=== PATIENT | female | born 1930 | race Caucasian/White ===

== ENCOUNTER 2017-04-13 13:11 | Emergency (ER) | payer MEDICARE, OTHER ==
[~2017-04-13 13:11] MED LIST: ADRIAMYCIN; ALLEGRA180 MG PO; ALPRAZOLAM0.25 MG PO; ANTIVERT PO; AVALIDE 300-121 EACH; AVALIDE 300-251 TAB PO; CALCIUM + D 6001 TA1 PO; CALCIUM 600 + D1 TA1 PO; CETRIZINE PO; COCONUT OIL PO; CYMBALTA PO; CYTOXAN; DAILY VALUE1 EACH PO; DOC-Q-LACE100 MG PO; DOCUSATE SODIUM PO; ENDOCET 5-3251 EACH PO; FEMARA2.5 MG PO; FISH OIL 10001000 MG PO; HUMALOG; HUMALOG100 U/ML SUBQ; JANUVIA PO; K-DUR10 MEQ; KCL PO; LANTUS100 U/ML SUBQ; LANTUS100 UNITS/ SUBQ; LASIX PO; LASIX20 MG PO; LIDOCAINE VISCOU1 ML EXT; LIDODERM30 EA TOP; LOVAZA PO; LOVAZA1 G PO; MICRO-K10 MEQ PO; MOTION SICKNESS25 M4 PO; MULTI-DAY VITAM1 TAB PO; MYCOLOG II CREA15 GM; MYCOSTATIN15 GM POW EXT; MYOFLEX TOP; NATURAL VITA100 UNIT PO; NEXIUM PO; NON ASPIRIN650 MG PO; NYSTATIN-TRIAMC15 G1; NYSTATIN15 GM OINT TOP; PAIN RELIEF650 MG PO; PRAVASTATIN SOD40 MG PO; PREDNISONE; PREVASTATIN; PROMETHAZINE HC25 MG PO; RITUXAN; SAVELLA25 MG; SAVELLA25 MG PO; SENNA-S TABLE1 UDTAB PO; SENNA8.6 M1 PO; SINGULAIR PO; SOLARAZE100 GM TP; VIT B6 PO; VITAL-D RX TABL1 TAB PO; VITAMIN B-121000 MCG PO; VITAMIN B12; VITAMIN D-32000 UNIT PO; VITAMIN D2000 UNI1 PO; VITAMIN E400 UNI2 PO; [UNRECOGNIZED DRUG - OTHER]
== END 2017-04-13 14:13 | disposition home or self-care (01) ==
LOC: SED 13:11
DX: T78.40XA Allergy, unspecified, initial encounter (principal); E11.9 Type 2 diabetes mellitus without complications; I10 Essential (primary) hypertension; E78.5 Hyperlipidemia, unspecified; Z90.49 Acquired absence of other specified parts of digestive tract; Z88.5 Allergy status to narcotic agent; Z88.2 Allergy status to sulfonamides
CPT/HCPCS: 96372; 99283; J1100

== ENCOUNTER → 2017-05-23 | Outpatient (CLI) | payer MEDICARE, OTHER ==
--- NOTE | ~2017-05-23 | MY28 ---
[facility] A Service of [facility] RADIOLOGY TEXT RESULTS PATIENT: NIKKI FOURNIER LOCATION: [facility] : 31 UNIT #: [id number] AGE: [address]: Gordy Wylie MD SEX: F ORDER DR: [id number] [facility] [address] [place], [place] [address] [id number] O MR#: [id number] Acc #: [id number] NAME: NIKKI FOURNIER : 1930 SEX: F STUDY DATE/TIME: 05/23/2017 15:45 UNIT: [facility] ROOM: STUDY DESCRIPTION: MY DANIELA SCREEN W/ CAD UNI RT Attending Physician: Gordy Wylie M.D. Ordering Physician: Gordy Wylie M.D. Primary Care Physician: Edd Patel M.D. MEDICAL IMAGING REPORT This report is preliminary unless electronic signature is present EXAM Unilateral right digital screening mammogram 05/23/2017 HISTORY 87-year-old woman, status post left mastectomy 2009. Adjuvant radiation therapy. Personal and family history, sister. Annual screen. FINDINGS Digital imaging of the right breast was completed utilizing screening protocol. Review includes FDA-approved CAD device. Breast parenchyma is predominantly fatty replaced. I see no interval occurring mass. There are no suspicious microcalcifications and no architectural deformity. IMPRESSION Negative unilateral right mammogram. Status post left mastectomy. Annual screening recommended. BIRADS 1 Patients over the age of 40 are entered into a reminder system with target due date for the next mammogram. A result letter will also be sent to the patient. BIRADS: 1 - Negative Dictated by... Dionisio Lama M.D. THIS IS AN ELECTRONICALLY VERIFIED REPORT Dionisio Lama M.D. at 05/24/2017 8:11 AM Sofia TD: 05/23/2017 18:05 JOB #: [id number] [facility] A Service of [facility] RADIOLOGY TEXT RESULTS PATIENT: NIKKI FOURNIER LOCATION: [facility] : 31 UNIT #: [id number] AGE: [address]: Gordy Wylie MD SEX: F ORDER DR: MEDICAL IMAGING REPORT Page 1 of 1 COPY
== END | disposition home or self-care (01) ==
LOC: CWCC 05-17 14:30
DX: Z12.31 Encounter for screening mammogram for malignant neoplasm of breast (principal); Z85.3 Personal history of malignant neoplasm of breast; Z80.3 Family history of malignant neoplasm of breast; Z90.12 Acquired absence of left breast and nipple
CPT/HCPCS: G0202

== ENCOUNTER 2017-07-17 20:10 | Observation (INO) | payer MEDICARE, OTHER ==
[~2017-07-17] VITALS: Ht 154.9 cm; Wt 85.3 kg
--- NOTE | ~2017-07-17 | EKG ---
PATIENT: NIKKI FOURNIER UNIT #: [id number] Ventricular Rate: 75 BPM Atrial Rate: 75 BPM P-R Interval: 162 ms QRS Duration: 92 ms Q-T Interval: 420 ms QTC Calculation(Bezet): 469 ms P [place]: 50 degrees Calculated R [place]: 32 degrees Calculated T [place]: 34 degrees Diagnosis Line: Sinus rhythm with occasional Premature ventricular Diagnosis Line: complexes Diagnosis Line: Otherwise normal ECG Diagnosis Line: When compared with ECG of 09-MAR-2011 23:57, Diagnosis Line: Premature ventricular complexes are now Present Diagnosis Line: Nonspecific T wave abnormality no longer evident Diagnosis Line: in Anterior leads Diagnosis Line: Confirmed by WING SAM MD ([id number]) on 07/18/2017 Diagnosis Line: 7:03:53 PM INTERPRETING MD: FLACO MCELROY
--- NOTE | ~2017-07-17 | CO ---
Unit #: [id number] #: [id number] Patient: NIKKI FOURNIER [id number] [facility]. [place], [place] [address] [id number] I MR#: [id number] NAME: NIKKI FOURNIER ROOM: 219 Age: 87 Sex: F Admission Date: 07/18/2017 : 1930 Attending Physician: Sarah Elizondo M.D. Primary Care Physician: Edd Patel M.D. Consultation Date: 07/19/2017 CONSULTATION REPORT REASON FOR CONSULTATION Pancytopenia, please evaluate. HISTORY OF PRESENT ILLNESS Ms. Nikki Fournier is an 87-year-old, well known to me with a history of diffuse large cell lymphoma and more remotely for history of breast cancer, who was admitted to the hospital with nausea, vomiting and profuse watery diarrhea, thought to be acute gastroenteritis. She had a temperature of 102 in the emergency room, bolused with IV fluids and was transferred to [facility]. Her stool has been checked for Clostridium difficile antitoxin, which was negative given her recent history of antibiotic usage. Ms. Fournier with her daughter at bedside tells me that her problems started in late February when she developed severe cellulitis of both lower extremities. She was initially treated with clindamycin and with failure, changed to Levaquin. Following this, she saw her fruit rancher, got Orbactiv IV with the first infusion complicated by flushing, chills and hypotension. This was thought to be related to the speed of infusion and thereafter even though her cellulitis cleared, there was concern that there was persistence and she had another infusion, which she tolerated better; however, a week later, she developed a diffuse rash, which was related to the Orbactiv, which was then discontinued. She has remained fatigued thereafter. No chest pains, cough with expectoration or normally any diarrhea. She has a history of sleep apnea, but according to daughter, she has not snored for several years and does not use the CPAP machine. PAST MEDICAL HISTORY 1. Stage III breast cancer diagnosed in 09/2010, undergoing a mastectomy and sentinel biopsy followed by axillary node dissection with a 4 cm invasive lobular carcinoma. 2. [place] nodes contain metastatic cancer and she had subsequently a total of 7 nodes ER and ME positive. She had a stage I colon cancer diagnosed on 09/21/2010 and large cell lymphoma on 04/10/2011, undergoing treatment with R-CHOP. 3. Essential hypertension. 4. Hyperlipidemia. 5. Cellulitis as mentioned. FAMILY HISTORY Notable for breast cancer in her half sister. PAST SURGICAL HISTORY Colon resection and mastectomy. Unit #: [id number] #: [id number] Patient: NIKKI FOURNIER SOCIAL HISTORY Never smoker. However, she was exposed to secondhand smoke both from her as well as her son. Does not drink any alcohol. She is single, and lives with a daughter. Has 3 children, who live locally. ALLERGIES Orbactiv as mentioned. REVIEW OF SYSTEMS A 14-point review of systems taken. CONSTITUTIONAL: Fatigue as mentioned. Appetite has been variable. EYES: Negative. EARS, NOSE, MOUTH AND THROAT: Some hardness of hearing. CARDIOVASCULAR: Negative. RESPIRATORY: Shortness of breathing on any exertion. GASTROINTESTINAL: Diarrhea, nausea, vomiting as discussed. GENITOURINARY: Negative. NEUROLOGIC: Some tingling and numbness of her feet. ALLERGIC: Reaction as discussed above. LYMPHATIC: Negative. ENDOCRINE: She has an insulin pump and according to daughter, her hemoglobin A1c was 6.6. She monitors her blood sugar 4 times a day. PSYCHIATRIC: Depression, which she is currently on antidepressants. PHYSICAL EXAMINATION GENERAL: She is a very pleasant, elderly woman sitting in bed. Awake, alert, and oriented x3. VITAL SIGNS: Temperature is 98.3, pulse is 63, respirations 16, blood pressure 177/44, O2 sats 99% on room air. HEENT: Shows mild pallor. No icterus. Mucous membranes are moist. NECK: Without JVD or thyromegaly. CARDIOVASCULAR: First and second heart sounds are heard and regular. No murmurs, gallops, or rubs. LUNGS: Chest expansion is symmetric bilaterally to normal breath sounds. ABDOMEN: Soft and nontender. Bowel sounds are active. EXTREMITIES: Warm with trace edema. Pulses are felt. NEUROLOGIC: She is awake, alert, and oriented x3 without any focal findings. PSYCHIATRIC: Affect is slightly flat, but that could be related to fatigue. She otherwise has no other pertinent symptoms. SKIN: Negative. LYMPHATIC: No palpable lymph nodes. DIAGNOSTIC STUDIES LABORATORY RESULTS: CBC with a white count of 3.7, hemoglobin 11, platelet count is 111,000. Complete metabolic panel shows a BUN of 11, creatinine is 0.5, eGFR is 87.6, total protein is 5.4, and albumin at 2.9. Stool C diff is negative. IMAGING STUDIES: Chest x-ray, single view, does not show any acute findings. The urine culture catheterized specimen shows 2 to 5 wbc's per high-power field. ASSESSMENT AND PLAN Ms. Haile Fournier is an 87-year-old with a history of colon cancer, stage III breast cancer, on hormonal therapy and a history of diffuse large cell lymphoma 6 years ago, admitted with nausea, vomiting and diarrhea accompanied by fever of 103, which is now improved. Clostridium difficile Unit #: [id number] #: [id number] Patient: SHANTANU,NIKKI enterocolitis was suspected and ruled out. According to her daughter, she has been quite fatigued related to her cellulitis and allergic reaction to IV antibiotics. I had an extensive discussion with the patient and daughter, her pancytopenia has been noted on previous occasions as well and may just reflect acute illnesses now improved today and I have reassured them about it. As far as the fatigue, this could be multifactorial, but I would additionally check a B12 level, thyroid function, check her echocardiogram for the possibility of side affects from previous anthracycline medications as well as being a longstanding diabetic, she appears to have silent ischemic heart disease along with a BNP. I discussed that given her shortness of breathing and a history of sleep apnea, although she does not snore at this point, we will do a 6 minute exercise test with checking of oxygen if feasible and consider the possibility of doing overnight pulse oximetry. Thank you for allowing me to participate in her care. Dictated by... Gordy Wylie M.D. BRYAN/jovani TD: 07/20/2017 05:54 JOB #: [id number] CONSULTATION REPORT Page 1 of 1 X Gordy Wylie MD CONSULTATION REPORT
--- NOTE | ~2017-07-17 | DS ---
Unit #: [id number] #: [id number] Patient: NIKKI FOURNIER [id number] [address] [address] [id number] I MR#: [id number] NAME: NIKKI FOURNIER ROOM: 219 Age: 87 Sex: F Admission Date: 07/18/2017 : 1930 Discharge Date: 07/19/2017 Attending Physician: Sarah Elizondo M.D. Primary Care Physician: Edd Patel M.D. DISCHARGE SUMMARY Admitting physician is Dr. Alicea for HIPS. ADMITTING DIAGNOSIS 1. Intractable nausea, vomiting likely due to gastroenteritis. 2. 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 3. Hypertension. 4. History of colon cancer. 5. History of Burkitt lymphoma. 6. History of stage 4 breast CA. DISCHARGE DIAGNOSIS 1. Intractable nausea, vomiting, diarrhea likely due to viral gastroenteritis, improved. 2. Insulin dependent diabetes mellitus on insulin pump, stable. 3. Pancytopenia, improved. 4. Hyponatremia likely secondary to volume depletion, improved. 5. History of stage 4 breast CA, stable. 6. Hypertension, stable. CONSULTS Consults include Dr. Gordy Wylie with oncology. PROCEDURES None. HISTORY OF PRESENT ILLNESS History of present illness is as follows: Ms. Fournier is an 87-year-old white female with history of colon cancer, breast CA as well as Burkitt lymphoma and insulin dependent diabetes on insulin pump who presented with a 1 day history of intractable nausea, vomiting, diarrhea. HOSPITAL COURSE Hospital course is as follows: Hospital course was essentially uneventful. Patient was observed overnight for her intractable symptoms where it was felt likely she had a gastroenteritis, possibly viral in nature. Her stool studies were sent off. She was empirically treated with Flagyl. However, her stool studies were negative including a negative C. diff and a negative Shigella and Salmonella/Campylobacter studies. Her Flagyl was discontinued. Patient, however, did improve. She was mildly pancytopenic during this admission. Given that she has seen Dr. Wylie due to her history of breast CA, I did ask him to evaluate her in regards to her pancytopenia. He did check several studies including a 2D echo as well as a BNP. The BNP was negative and her 2D echo showed a left ventricular systolic function of normal with an Unit #: [id number] #: [id number] Patient: NIKKI FOURNIER estimated ejection fraction of 55%. Her thyroid studies also were negative. He felt that from his standpoint she could follow up with him as an outpatient. She did ambulate with physical therapy and did well per their recommendations. She did resume her home insulin dose via her pump and has had stable blood sugars but overall, on the day of discharge, patient felt well. Her exam had no acute findings and, overall, she is medically stable for discharge home. DISCHARGE MEDICATIONS Include: 1. She will resume or Avalide 300/12.5 mg p.o. daily. 2. Cymbalta 60 mg p.o. daily. 3. Meclizine 25 mg p.o. b.i.d. as needed for dizziness. 4. Femara 2.5 mg p.o. daily. 5. Lidoderm patch, 1 topically for 12 hours and then 12 hours off as needed. 6. Docusate 100 mg p.o. daily. 7. Pravastatin 40 mg p.o. q. h.s. 8. Singulair 10 mg p.o. daily. 9. Multivitamin, 1 tablet p.o. daily. 10. Calcium with D 600 mg p.o. daily. 11. Vitamin D 2000 units p.o. daily. 12. Vitamin B12 1000 mcg p.o. b.i.d. 13. Lovaza 2 g p.o. b.i.d. 14. She will resume her home insulin via her insulin delivery system as she was taking before. DISCHARGE INSTRUCTIONS Discharge instructions are that she will see Dr. Wylie with oncology in the office in 1-2 weeks. She will also follow up with her primary care physician in 1-2 weeks. Dictated by... Shobha Sher/chaz TD: 07/22/2017 15:15 JOB #: [id number] CC: Gordy Wylie M.D. DISCHARGE SUMMARY Page 1 of 1 X Sarah Elizondo X DISCHARGE SUMMARY
--- NOTE | ~2017-07-17 | HP ---
Unit #: [id number] #: [id number] Patient: NIKKI FOURNIER [id number] [address] [place], [place] [address] [id number] I MR#: [id number] NAME: NIKKI FOURNIER ROOM: 219 Age: 87 Sex: F Admission Date: 07/18/2017 : 1930 Attending Physician: Ninfa Ro M.D. Primary Care Physician: Edd Patel M.D. HISTORY AND PHYSICAL CHIEF COMPLAINT Gastroenteritis with intractable symptoms. HISTORY This pleasant 87-year-old female with IDDM, hypertension, was transferred from [facility] emergency department for gastroenteritis with intractable symptoms. The patient was well until about 24 hours prior to admission when she developed intractable nonbloody nausea, vomiting, and diarrhea. Became increasingly weak throughout the day with a fever. She is on an insulin pump, which her daughter disconnected as she was not tolerating foot. She was taken to [facility] emergency department late last evening with a temperature of 102 degrees. She was bolused with 500 mL of normal saline, given Zofran, Tylenol and ultimately a dose of Motrin for her fever. Currently is feeling somewhat improved, although still experiencing diarrhea. Patient has not eaten anything out of the ordinary, no ill contacts. Has not traveled. She was on prolonged antibiotics this spring until end of March. However, her white blood count is normal. Stool is pending cultures and C. diff. PAST MEDICAL HISTORY 1. Stage 4 breast cancer. Currently receiving Femara, status post left mastectomy. 2. Early colon cancer, status post hemicolectomy. 3. Burkitt lymphoma diagnosed 2010, status post chemotherapy with cure. 4. 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 5. Essential hypertension. 6. Hyperlipidemia. 7. Normal ejection fraction of 55%. 8. Recent treatment for lower extremity cellulitis earlier this year in the spring on prolonged antibiotics. 9. Right shoulder arthroplasty. 10. Legally blind. 11. Left mastectomy. 12. Partial colectomy. 13. Hysterectomy. 14. Cataract extraction and further eye surgery. 15. Cholecystectomy. 16. Hemorrhoid surgery. ALLERGIES Patient is allergic to oritavancin. Unit #: [id number] #: [id number] Patient: NIKKI FOURNIER HOME MEDICATIONS Insulin pump plus NovoLog 4 units in the morning, at lunch and 10 units with dinner; Cymbalta 60 mg daily; Avalide 300/12.5 mg daily; multivitamin daily; calcium plus D 600 mg daily; Singulair 10 mg daily; meclizine 25 mg t.i.d. p.r.n.; vitamin D 2,000 units daily; Pravachol 40 mg q.h.s.; B12 1,000 mcg p.o. b.i.d.; Femara 2.5 mg daily; Lovaza 2 g p.o. b.i.d.; Lidoderm patch on 12 hours and off 12 hours; and Colace. FAMILY HISTORY Noncontributory given patent's age. SOCIAL HISTORY The patient lives with her daughter. She is a lifelong nonsmoker and does not drink alcohol. REVIEW OF SYSTEMS Notable for nausea, vomiting and diarrhea, breast and colon cancer, lymphoma, diabetes, hypertension, above mentioned surgeries, fever, weakness. All other systems were reviewed and otherwise negative. PHYSICAL EXAMINATION GENERAL: Very pleasant 87-year-old female who looks younger than stated age. VITAL SIGNS: Temperature was as high as 102 degrees, pulse 92, respirations 16, blood pressure 150/67, O2 saturation 96% on room air. Current temperature is 98.3. HEENT: Eyes - PERRLA, extraocular muscles are intact. Pharynx is benign. NECK: Supple without adenopathy or thyromegaly. CHEST: Clear. CARDIAC: Slightly tachy S1 and S2, without murmur. ABDOMEN: Bowel sounds are present. No hepatosplenomegaly, tenderness or masses. EXTREMITIES: With mild edema. Pedal pulses are present. No ulcers on the feet. NEUROLOGIC: Patient is awake, alert. She is oriented. She is a bit hard of hearing and has problems with her vision. Has equal strength throughout but is a bit weak on exam. DIAGNOSTIC STUDIES LABS: Hematocrit 35.1, normal white count, platelet count is 118, and this is chronic. Normal MCV. SMA 12 - glucose 111, chloride 99, protein 5.8, albumin 3.2, lactic acid normal. Cardiac markers are negative. Urinalysis is negative. IMAGING STUDIES: Chest x-ray - no acute disease. CARDIOLOGY STUDIES: EKG - normal sinus rhythm rate 75, one PVC noted, otherwise normal. ASSESSMENT 1. Gastroenteritis with intractable symptoms, probably viral. However, given recent prolonged antibiotics will gentle treat with Flagyl until stool cultures are back. 2. IDDM. 3. Essential hypertension. 4. Status post hemicolectomy for colon cancer. 5. Previous treatment for Burkitt lymphoma. Unit #: [id number] #: [id number] Patient: NIKKI FOURNIER 6. Stage 4 breast cancer on Femara. PLANS 1. Stool cultures have been sent. 2. Clear liquid diet. 3. IV fluids with dextrose until diet is advanced. 4. Sliding scale insulin. 5. Flagyl pending stool cultures. 6. SCDs for DVT prophylaxis. 7. Supportive treatment. Dictated by Ninfa Ro M.D. AML/ts TD: 07/18/2017 06:35 JOB #: [id number] HISTORY AND PHYSICAL Page 1 of 1 X Ninfa Ro MD X HISTORY AND PHYSICAL
--- NOTE | ~2017-07-17 | CR72 ---
[facility] A Service of [facility] RADIOLOGY TEXT RESULTS PATIENT: NIKKI FOURNIER LOCATION: [facility] : 31 UNIT #: [id number] AGE: [address]: Ninfa Ro MD SEX: F ORDER DR: [id number] [address] [address] [id number] MR#: [id number] Acc #: [id number] NAME: NIKKI FOURNIER : 1930 SEX: F STUDY DATE/TIME: 07/17/2017 23:02 UNIT: SED ROOM: STUDY DESCRIPTION: CR Chest Single View Portable Attending Physician: Vane Maier M.D. Ordering Physician: Vane Miaer M.D. Primary Care Physician: Edd Patel M.D. MEDICAL IMAGING REPORT This report is preliminary unless electronic signature is present. EXAM Portable chest HISTORY Cough, fever and shortness of air today. FINDINGS Cardiac size and pulmonary vascularity are normal. No infiltrates or effusions. Left mastectomy. Right shoulder prosthesis. IMPRESSION No acute findings. Dictated by... Ra Warren M.D. THIS IS AN ELECTRONICALLY VERIFIED REPORT Ra Warren M.D. at 07/18/2017 4:38 AM DAE/osbaldo TD: 07/18/2017 00:47 JOB #: [id number] MEDICAL IMAGING REPORT Page 1 of 1
[2017-07-17 22:06] LABS: BASOPHIL% 0.6 % (0-2.5); EOSINOPHIL% 0.2 % (0.0-7.0); HEMATOCRIT 35.1 % (35.0-45.0); HEMOGLOBIN 11.6 gm/dL (12.0-16.0); LYMPHOCYTE# 0.8 X10e3 (1.0-3.5); LYMPHOCYTE% 14.6 % (17.0-45.0); MEAN CELL VOLUME 85.6 FL (83-96); MEAN CORPUSCULAR HEMOGLOBIN 28.2 PG (28-34); MONOCYTE# 0.5 X10e3 (0-1.0); MONOCYTE% 8.3 % (3.0-12.0); NEUTROPHIL# 4.4 X10e3 (1.5-7.1); NEUTROPHIL% 76.3 % (40-75); PLATELET COUNT 118 X10e3 (140-420); WHITE BLOOD COUNT 5.7 X10e3 (4.0-10.5)
[2017-07-17 22:07] LABS: DIFF IND NO
[2017-07-17 22:10] LABS: POC - CKMB <1.0 ng/mL (0.0-7.9); POC - TROPONIN <0.05 ng/mL (<=0.05)
[2017-07-17 22:22] LABS: ALBUMIN SERUM 3.2 g/dL (3.5-5.0); BILIRUBIN, DIRECT 0.3 mg/dL (0.0-0.2); BILIRUBIN,INDIRECT 0.7 mg/dL (0.0-0.9); BUN/CREATININE RATIO 19.09; CALCIUM SERUM 8.5 mg/dL (8.4-10.2); CREATININE SERUM 1.1 mg/dL (0.6-1.4); GLOM FILT RATE Estimated 45.4 mL/min (>60); POTASSIUM 4.1 mmol/L (3.5-5.1); PROTEIN TOTAL SERUM 5.8 g/dL (6.0-8.3)
[2017-07-17 23:06] LABS: URINE APPEARANCE CLEAR; URINE BILIRUBIN NEG (NEG); URINE BLOOD TRACE-INTACT (NEG); URINE COLOR YELLOW; URINE GLUCOSE NEG (NORM); URINE KETONE TRACE (NEG); URINE LEUKOCYTE ESTERASE NEG (NEG); URINE NITRATE NEG (NEG); URINE PH 5.5 (5-8); URINE PROTEIN NEG (NEG); URINE SPECIFIC GRAVITY 1.025 (1.003-1.035); URINE UROBILINOGEN 0.2 MG/DL (NORM)
[2017-07-17 23:08] LABS: MICRO INDICATED? YES; URINE SOURCE CATH
[2017-07-17 23:12] LABS: CULTURE INDICATED? NO; URINE AMORPHOUS SEDIMENT AMORP URATES; URINE BACTERIA NEG (NEG); URINE MUCUS PRESENT; URINE SQUAMOUS EPITHELIAL CELL FEW /[HPF]; URINE TRANSITIONAL EPI CELLS FEW /[HPF]
[2017-07-18 06:46] LABS: CALCIUM SERUM 8.1 mg/dL (8.4-10.2); CREATININE SERUM 1.1 mg/dL (0.6-1.4); GLOM FILT RATE Estimated 45.4 mL/min (>60); POTASSIUM 3.7 mmol/L (3.5-5.1)
[2017-07-18 08:00] LABS: HEMATOCRIT 31.5 % (35.0-45.0); HEMOGLOBIN 10.6 gm/dL (12.0-16.0); MEAN CELL VOLUME 85.2 FL (83-96); MEAN CORPUSCULAR HEMOGLOBIN 28.5 PG (28-34); MEAN CORPUSCULAR HGB CONC 33.5 g/dL (30-36); MEAN PLATELET VOLUME 10.1 FL (6.5-11.5); RED BLOOD COUNT 3.7 X10e (3.90-5.30); RED CELL DISTRIBUTION WIDTH 13.9 % (11.0-15.5); WHITE BLOOD COUNT 3.2 X10e3 (4.0-10.5)
[2017-07-19 06:07] LABS: HEMATOCRIT 33.2 % (35.0-45.0); MEAN CELL VOLUME 85.3 FL (83-96); MEAN CORPUSCULAR HEMOGLOBIN 28.4 PG (28-34); MEAN CORPUSCULAR HGB CONC 33.3 g/dL (30-36); MEAN PLATELET VOLUME 10.3 FL (6.5-11.5); RED BLOOD COUNT 3.88 X10e (3.90-5.30); RED CELL DISTRIBUTION WIDTH 14.1 % (11.0-15.5); WHITE BLOOD COUNT 3.7 X10e3 (4.0-10.5)
[2017-07-19 06:58] LABS: ALBUMIN SERUM 2.9 g/dL (3.5-5.0); BILIRUBIN,TOTAL 0.7 mg/dL (0.2-2.0); CALCIUM SERUM 8.2 mg/dL (8.4-10.2); CREATININE SERUM 0.5 mg/dL (0.6-1.4); GLOM FILT RATE Estimated 87.6 mL/min (>60); POTASSIUM 3.7 mmol/L (3.5-5.1); PROTEIN TOTAL SERUM 5.4 g/dL (6.0-8.3)
[2017-07-19 10:37] LABS: THYROID STIMULATING HORMONE 1.19 uIU/ml (0.34-5.60)
[2017-07-19 10:44] LABS: FREE THYROXIN (T4) 0.86 ng/dL (0.58-1.64)
== END 2017-07-19 17:18 | disposition home or self-care (01) ==
LOC: SED 20:10 → SEDOF 07-18 00:33 → C2A 07-18 00:33 → SEDOF 07-18 00:33 → SED 07-18 00:33 → SEDOF 07-18 03:12 → C2A 07-18 03:12
PROVIDERS: Emergency Medicine; Internal Medicine; Internal Medicine Hematology & Oncology
DX: R11.2 Nausea with vomiting, unspecified (principal); R19.7 Diarrhea, unspecified; D61.818 Other pancytopenia; C50.919 Malignant neoplasm of unspecified site of unspecified female breast; Z17.0 Estrogen receptor positive status [ER+]; I51.7 Cardiomegaly; I08.1 Rheumatic disorders of both mitral and tricuspid valves; E87.1 Hypo-osmolality and hyponatremia; E11.9 Type 2 diabetes mellitus without complications; Z79.4 Long term (current) use of insulin; I10 Essential (primary) hypertension; E78.5 Hyperlipidemia, unspecified; Z85.038 Personal history of other malignant neoplasm of large intestine; Z85.72 Personal history of non-Hodgkin lymphomas; H54.8 Legal blindness, as defined in USA; Z90.710 Acquired absence of both cervix and uterus; Z90.49 Acquired absence of other specified parts of digestive tract; Z96.611 Presence of right artificial shoulder joint; Z98.49 Cataract extraction status, unspecified eye; Z90.12 Acquired absence of left breast and nipple; Z88.1 Allergy status to other antibiotic agents; Z79.899 Other long term (current) drug therapy
CPT/HCPCS: 36415; 71010; 80048; 80053; 80076; 81003; 82553; 82607; 82947; 83605; 83874; 83880; 84439; 84443; 84484; 85025; 85027; 87040; 87045; 87427; 87493; 87899; 93005; 93306; 96360; 96361; 96372; 96374; 96376; 97116; 97162; 97535; 99285; G0378; G8978-GP; G8979-GP; G8980-GP; J1815; J2405